=== PATIENT | female | born 1955 | race Caucasian/White ===

== ENCOUNTER → 2016-06-17 | Outpatient (CLI) | payer BC, OTHER | LOC: FIMAGING 09:34 | DX: Z12.31 Encounter for screening mammogram for malignant neoplasm of breast (principal); Z85.3 Personal history of malignant neoplasm of breast | CPT/HCPCS: G0202 ==

== ENCOUNTER → 2016-10-07 | Outpatient (CLI) | payer OTHER | LOC: BMCIMAGING 09:31 | PROVIDERS: ATTEND Internal Medicine Hematology & Oncology | DX: Z13.820 Encounter for screening for osteoporosis (principal); M85.80 Other specified disorders of bone density and structure, unspecified site; C50.211 Malignant neoplasm of upper-inner quadrant of right female breast ==

== ENCOUNTER → 2016-11-11 | Outpatient (CLI) | payer OTHER | LOC: FIMAGING 14:38 | PROVIDERS: ATTEND Internal Medicine Hematology & Oncology | DX: N63 Unspecified lump in breast (principal); Z85.3 Personal history of malignant neoplasm of breast | CPT/HCPCS: G0204; G0206 ==

== ENCOUNTER → 2017-06-13 | Outpatient (CLI) | payer OTHER | LOC: FIMAGING 16:05 | PROVIDERS: ATTEND Internal Medicine Hematology & Oncology | DX: Z12.31 Encounter for screening mammogram for malignant neoplasm of breast (principal); Z85.3 Personal history of malignant neoplasm of breast ==

== ENCOUNTER → 2018-07-06 | Outpatient (CLI) | payer OTHER | LOC: FIMAGING 12:12 | PROVIDERS: ATTEND Internal Medicine Hematology & Oncology | DX: Z12.31 Encounter for screening mammogram for malignant neoplasm of breast (principal); Z85.3 Personal history of malignant neoplasm of breast ==